=== PATIENT | male | born 1980 ===

== ENCOUNTER 2022-03-25 07:16 | Day surgery (SDC) | payer OTHER ==
[~2022-03-25] VITALS: Ht 170.2 cm; Wt 90.8 kg
[2022-03-25 07:34] VITALS: BP 150/91; PULSE 86; TEMP 97.3
[2022-03-25] MEDS ORDERED: ZYRTEC 10MG10 MG PO (07:40)
[2022-03-25] MEDS ORDERED: NEXIUM20 MG/Pack PO (07:41)
[2022-03-25] MEDS ORDERED: TRICOR145 MG PO (07:42)
[2022-03-25] MEDS ORDERED: RT ADVAIR 128 DISKUS PO (07:42)
[2022-03-25] MEDS ORDERED: MASON NATURAL1200 MG PO (07:43)
[2022-03-25] MEDS ORDERED: ZANTAC-360 (FAM20 MG PO (07:43)
[2022-03-25] MEDS ORDERED: PROAIR HFA0.09 MG/AC PO (07:44)
[2022-03-25 08:50] VITALS: BP 117/85; PULSE 79; TEMP 97.6
[2022-03-25 09:05] VITALS: BP 127/90; PULSE 80
[2022-03-25 09:20] VITALS: BP 128/94; PULSE 79
--- NOTE | 2022-03-25 09:48 | NUR ---
0850 PT ARRIVED FROM [facility] S/P EGD. LETHARGIC AND ORIENTED, WALKS TO CHAIR WITH 2 PERSON ASSIST, GAIT UNSTEADY. PLACED ON MONITOR, VSS ON RA. RECEIVED REPORT AND ASSUMED CARE OF PT FROM KADE DELATORRE. 0900 PROVIDED COFFEE AND APPLESAUCE PER REQUEST. A&O, NAD, VSS ON RA. SPOUSE/RIDE HOME IN ROOM. 0915 TOLERATING PO WELL, AWAITING LAB ORDERS AND D/C PAPERWORK, DENIES COMPLAINT OR NEED.
== END 2022-03-25 09:40 | disposition home or self-care (01) ==
LOC: SDCO 07:16
DX: K44.9 Diaphragmatic hernia without obstruction or gangrene (principal); T18.2XXA Foreign body in stomach, initial encounter; J45.909 Unspecified asthma, uncomplicated; K21.00 Gastro-esophageal reflux disease with esophagitis, without bleeding; K90.49 Malabsorption due to intolerance, not elsewhere classified; K90.41 Non-celiac gluten sensitivity; X58.XXXA Exposure to other specified factors, initial encounter
CPT/HCPCS: J2704; J7120